=== PATIENT | female | born 1955 | race Native Hawaiian/Other Pacific Islander ===

== ENCOUNTER → 2016-11-20 | Outpatient (CLI) | payer MEDICARE ==
[~2016-11-20] MED LIST: ANTIVERT 25MG25 MG PO; CELEXA10 MG PO; GLUCOPHAGE500 MG/TAB PO; LEVOXYL0.112 MG PO; PRILOSEC 20MG20 MG PO; PRINZIDE 25 MG-1 TAB PO; VALIUM 2MG T2 MG/TAB PO; ZOFRAN 4MG T4 MG/TAB PO
== END ==
LOC: MC.RAD 10:58
DX: Z12.31 Encounter for screening mammogram for malignant neoplasm of breast (principal)

== ENCOUNTER 2018-01-04 08:07 | Day surgery (SDC) | payer MEDICARE ==
[~2018-01-04] VITALS: Ht 154.9 cm; Wt 96.1 kg
[2018-01-04 08:29] VITALS: BP 157/93; PULSE 63; TEMP 98
[2018-01-04] MEDS ORDERED: PRINZIDE 25 MG-1 TAB PO (08:32)
[2018-01-04] MEDS ORDERED: LIPITOR20 MG PO (08:33)
[2018-01-04] MEDS ORDERED: CELEXA40 MG PO (08:33)
[2018-01-04] MEDS ORDERED: SYNTHROID0.112 MG/T PO (08:34)
[2018-01-04] MEDS ORDERED: PRILOSEC 20MG20 MG PO (08:34)
[2018-01-04] MEDS ORDERED: NORCO 325 MG-101 TAB PO (08:35)
[2018-01-04 09:30] VITALS: BP 149/73; PULSE 68; TEMP 98.7
[2018-01-04 09:45] VITALS: BP 147/78; PULSE 59
[2018-01-04 10:00] VITALS: BP 138/73; PULSE 56
[2018-01-04 10:15] VITALS: BP 137/74; PULSE 57
[2018-01-04 10:30] VITALS: BP 147/72; PULSE 53
== END 2018-01-04 10:54 | disposition home or self-care (01) ==
LOC: SDCO 08:07
DX: Z12.11 Encounter for screening for malignant neoplasm of colon (principal); K64.0 First degree hemorrhoids; K21.9 Gastro-esophageal reflux disease without esophagitis; E11.9 Type 2 diabetes mellitus without complications; I10 Essential (primary) hypertension; J45.909 Unspecified asthma, uncomplicated; E78.00 Pure hypercholesterolemia, unspecified; G89.29 Other chronic pain; Z85.41 Personal history of malignant neoplasm of cervix uteri; Z90.710 Acquired absence of both cervix and uterus; Z88.0 Allergy status to penicillin
CPT/HCPCS: J2250; J3010; J7030